=== PATIENT | male | born 1955 | race Caucasian/White ===

== ENCOUNTER → 2020-09-28 | Outpatient (CLI) | payer OTHER ==
--- NOTE | 2020-09-30 10:18 | P.ARTDOP ---
Arterial Doppler LOWER EXTREMITY ARTERIAL DOPPLER: DATE OF SERVICE: 09/28/2020 Reason for study: Calf claudication. Doppler waveforms: Multiphasic bilaterally throughout with excellent digital waveforms. Pulse volume recording: []. Pressure gradients: None of significance. Ankle-brachial indices: Greater than 1 bilaterally. Toe brachial indices: 0.66 on the right, 0.66 on the left Impression: Normal study.
== END | disposition home or self-care (01) ==
LOC: RADUSWWP 14:05
DX: M79.606 Pain in leg, unspecified (principal)
CPT/HCPCS: 93922

== ENCOUNTER 2020-12-18 15:26 | Emergency (ER) | payer OTHER ==
[2020-12-18 15:36] VITALS: RESP 18; TEMP 97.3
--- NOTE | 2020-12-18 15:42 | ED ---
General Adult HPI - General Chief complaint: Neuro Symptoms/Deficit Stated complaint: blurred vision Time Seen by Provider: 12/18/20 15:41 Source: patient, family Mode of arrival: ambulatory Limitations: no limitations - History of Present Illness Initial comments: Patient presents to the ED with his daughter for evaluation. Patient states that he was doing some work outdoors on a fence about an hour ago when he became lightheaded and "shaky". Patient states that his vision then became blurry, so he sat down. Patient states that he then called his daughter who arrived about 20 minutes later. Patient's daughter states that the patient looked pale in appearance when she arrived, but she states that he looks much better now. Patient states that his symptoms have completely resolved at this time. Patient states that he has not had anything to eat today, and he states that he did have one "mixed" alcoholic beverage today. Patient denies having any symptoms or complaints currently. Patient denies fall/trauma/injury, fever or chills, head ache, focal numbness/weakness/neuro deficit, speech difficulty, chest pain or pressure, dyspnea, palpitations, syncope, abdominal pain, nausea/vomiting/diarrhea, bloody or melanotic stool, dysuria or urinary symptoms, or any other symptoms or complaints. Patient denies any recent change in his medications. - Related Data Home Medications Medication Instructions Recorded Confirmed Unable To Assess [Unable to Assess] 11/24/15 11/24/15 Allergies Allergy/AdvReac Type Severity Reaction Status Date / Time No Known Allergies Allergy Verified 12/18/20 15:36 Review of Systems ROS Statement: Those systems with pertinent positive or pertinent negative responses have been documented in the HPI. ROS Other: All systems not noted in ROS Statement are negative. Past Medical History Past Medical History: Hypertension Additional Past Medical History / Comment(s): prostate issues History of Any Multi-Drug Resistant Organisms: None Reported Past Surgical History: No Surgical Hx Reported Past Psychological History: No Psychological Hx Reported Smoking Status: Current some day smoker Past Alcohol Use History: Daily, Heavy Past Drug Use History: None Reported General Exam Limitations: no limitations General appearance: alert, in no apparent distress Head exam: Present: atraumatic, normocephalic Eye exam: Present: normal appearance, PERRL, EOMI ENT exam: Present: mucous membranes moist Neck exam: Present: other (Trachea is in midline) Respiratory exam: Present: normal lung sounds bilaterally. Absent: respiratory distress, wheezes, rales, rhonchi, stridor Cardiovascular Exam: Present: regular rate, normal rhythm, normal heart sounds, other (Normal radial pulses bilaterally) GI/Abdominal exam: Present: soft. Absent: distended, tenderness, guarding Extremities exam: Present: full ROM. Absent: pedal edema Neurological exam: Present: alert, oriented X3, CN II-XII intact. Absent: motor sensory deficit Psychiatric exam: Present: normal affect, normal mood Skin exam: Present: warm, dry, intact, normal color Course Vital Signs 12/18/20 15:32 Temperature 97.3 F L Pulse Rate 77 Respiratory 18 Rate Blood Pressure 105/68 O2 Sat by Pulse 100 Oximetry - Reevaluation(s) Reevaluation #1: 12/18/20 18:24 Patient continues to deny having any symptoms while in the ED. Patient remains alert and breathing comfortably with stable vital signs and a normal room air oxygen saturation. Patient and daughter are aware the patient's test results, and they both feel comfortable with the patient going home at this time. Patient was encouraged to drink plenty of water/fluids and to avoid alcoholic beverages. Patient was counseled about lightheadedness, and he was clearly explained return and follow-up instructions. Patient was instructed to follow up closely with his primary care provider. Patient feels comfortable with this plan. EKG Findings - EKG Comments: EKG Findings:: Normal sinus rhythm, ventricular rate of 79 bpm, no ectopy, normal [place] and QRS intervals, normal QT interval, normal axis, no ST or T-wave abnormality Medical Decision Making - Medical Decision Making Patient's EKG, labs and imaging studies are all fairly unremarkable. I suspect that the patient's symptoms likely represent a near syncopal episode and not a neurological event. I do not suspect an emergent medical condition at this time. Patient's vital signs have been stable and reassuring and the ED. Will discharge patient home with his daughter at this time. Patient was clearly given return and follow-up instructions. Patient was instructed to have a low threshold for return to the ED should his symptoms return/worsen or should he develop any new concerning symptoms. Patient feels comfortable with this plan. - Lab Data Result diagrams: 12/18/20 16:14 12/18/20 16:14 Lab Results 12/18/20 12/18/20 12/18/20 Range/Units 15:51 16:14 16:14 WBC 9.9 (3.8-10.6) k/uL RBC 4.62 (4.30-5.90) m/uL Hgb 15.6 (13.0-17.5) gm/dL Hct 44.7 (39.0-53.0) % MCV 96.8 (80.0-100.0) fL MCH 33.8 (25.0-35.0) pg MCHC 34.9 (31.0-37.0) g/dL RDW 13.8 (11.5-15.5) % Plt Count 184 (150-450) k/uL MPV 6.5 Neutrophils % 77 % Lymphocytes % 14 % Monocytes % 6 % Eosinophils % 2 % Basophils % 0 % Neutrophils # 7.6 (1.3-7.7) k/uL Lymphocytes # 1.4 (1.0-4.8) k/uL Monocytes # 0.6 (0-1.0) k/uL Eosinophils # 0.2 (0-0.7) k/uL Basophils # 0.0 (0-0.2) k/uL PT 10.3 (9.0-12.0) sec INR 1.0 (<1.2) APTT 22.3 (22.0-30.0) sec Sodium (137-145) mmol/L Potassium (3.5-5.1) mmol/L Chloride (98-107) mmol/L Carbon Dioxide (22-30) mmol/L Anion Gap mmol/L BUN (9-20) mg/dL Creatinine (0.66-1.25) mg/dL Est GFR (CKD-EPI)AfAm (>60 ml/min/1.73 sqM) Est GFR (CKD-EPI)NonAf (>60 ml/min/1.73 sqM) Glucose (74-99) mg/dL POC Glucose (mg/dL) 131 H (75-99) mg/dL POC Glu Small Parts Shaper Operator ID Svacha, II, Allen Calcium (8.4-10.2) mg/dL Total Bilirubin (0.2-1.3) mg/dL AST (17-59) U/L ALT (4-49) U/L Alkaline Phosphatase (38-126) U/L Troponin I (0.000-0.034) ng/mL Total Protein (6.3-8.2) g/dL Albumin (3.5-5.0) g/dL Urine Color Urine Appearance (Clear) Urine pH (5.0-8.0) Ur Specific Korbel (1.001-1.035) Urine Protein (Negative) Urine Glucose (UA) (Negative) Urine Ketones (Negative) Urine Blood (Negative) Urine Nitrite (Negative) Urine Bilirubin (Negative) Urine Urobilinogen (<2.0) mg/dL Ur Leukocyte Esterase (Negative) Serum Alcohol mg/dL 12/18/20 12/18/20 12/18/20 Range/Units 16:14 16:14 16:14 WBC (3.8-10.6) k/uL RBC (4.30-5.90) m/uL Hgb (13.0-17.5) gm/dL Hct (39.0-53.0) % MCV (80.0-100.0) fL MCH (25.0-35.0) pg MCHC (31.0-37.0) g/dL RDW (11.5-15.5) % Plt Count (150-450) k/uL MPV Neutrophils % % Lymphocytes % % Monocytes % % Eosinophils % % Basophils % % Neutrophils # (1.3-7.7) k/uL Lymphocytes # (1.0-4.8) k/uL Monocytes # (0-1.0) k/uL Eosinophils # (0-0.7) k/uL Basophils # (0-0.2) k/uL PT (9.0-12.0) sec INR (<1.2) APTT (22.0-30.0) sec Sodium 139 (137-145) mmol/L Potassium 4.4 (3.5-5.1) mmol/L Chloride 102 (98-107) mmol/L Carbon Dioxide 23 (22-30) mmol/L Anion Gap 14 mmol/L BUN 9 (9-20) mg/dL Creatinine 1.20 (0.66-1.25) mg/dL Est GFR (CKD-EPI)AfAm 73 (>60 ml/min/1.73 sqM) Est GFR (CKD-EPI)NonAf 63 (>60 ml/min/1.73 sqM) Glucose 121 H (74-99) mg/dL POC Glucose (mg/dL) (75-99) mg/dL POC Glu Small Parts Shaper Operator ID Calcium 9.7 (8.4-10.2) mg/dL Total Bilirubin 1.2 (0.2-1.3) mg/dL AST 48 (17-59) U/L ALT 36 (4-49) U/L Alkaline Phosphatase 84 (38-126) U/L Troponin I <0.012 (0.000-0.034) ng/mL Total Protein 7.9 (6.3-8.2) g/dL Albumin 4.8 (3.5-5.0) g/dL Urine Color Yellow Urine Appearance Clear (Clear) Urine pH 5.5 (5.0-8.0) Ur Specific Korbel 1.007 (1.001-1.035) Urine Protein Trace H (Negative) Urine Glucose (UA) Negative (Negative) Urine Ketones Negative (Negative) Urine Blood Negative (Negative) Urine Nitrite Negative (Negative) Urine Bilirubin Negative (Negative) Urine Urobilinogen <2.0 (<2.0) mg/dL Ur Leukocyte Esterase Negative (Negative) Serum Alcohol <10 mg/dL - Radiology Data Radiology results: report reviewed (Chest x-ray: Normal chest, no change; noncontrast head CT: Negative CT scan of the brain) Disposition Clinical Impression: Lightheadedness Disposition: HOME SELF-CARE Condition: Stable Instructions (If sedation given, give patient instructions): Lightheadedness (ED) Additional Instructions: Return to the ER immediately should you develop any significant pain, a fever, numbness or weakness, chest pain, shortness of breath, feeling faint or fainting, or new or worsening symptoms. Follow up closely with your primary care provider. Is patient prescribed a controlled substance at d/c from ED?: No Referrals: [facility],Clinic [Primary Care Provider] - 1-2 days Time of Disposition: 18:27
[2020-12-18] MEDS ORDERED: SODIUM CHLORIDE 0.9% 1,000 ML IV STA (15:51)
[2020-12-18 15:53] LABS: Glucose,Whole Blood 131 mg/dL (75-99)
[2020-12-18 16:25] LABS: Basophils % (A) 0 %; Eosinophils # (A) 0.2 k/uL (0-0.7); Eosinophils % (A) 2 %; HCT 44.7 % (39.0-53.0); HGB 15.6 gm/dL (13.0-17.5); Lymphocytes # (A) 1.4 k/uL (1.0-4.8); Lymphocytes % (A) 14 %; MCH 33.8 pg (25.0-35.0); MCHC 34.9 g/dL (31.0-37.0); MCV 96.8 fL (80.0-100.0); Mean Platelet Volume 6.5; Monocytes # (A) 0.6 k/uL (0-1.0); Monocytes % (A) 6 %; Neutrophils # (A) 7.6 k/uL (1.3-7.7); Neutrophils % (A) 77 %; Platelet Count 184 k/uL (150-450); RBC 4.62 m/uL (4.30-5.90); RDW 13.8 % (11.5-15.5); WBC 9.9 k/uL (3.8-10.6)
[2020-12-18 16:37] LABS: ALT 36 U/L (4-49); AST 48 U/L (17-59); African American GFR (CKD) 73 (>60 ml/min/1.73 sqM); Albumin 4.8 g/dL (3.5-5.0); Alcohol <10 mg/dL; Alkaline Phosphatase 84 U/L (38-126); Anion Gap 14 mmol/L; Blood Urea Nitrogen 9 mg/dL (9-20); Calcium 9.7 mg/dL (8.4-10.2); Carbon Dioxide 23 mmol/L (22-30); Chloride 102 mmol/L (98-107); Glucose 121 mg/dL (74-99); Non-African American GFR(CKD) 63 (>60 ml/min/1.73 sqM); Potassium 4.4 mmol/L (3.5-5.1); Sodium 139 mmol/L (137-145); Total Bilirubin 1.2 mg/dL (0.2-1.3); Total Protein 7.9 g/dL (6.3-8.2)
[2020-12-18 16:38] LABS: Partial Thromboplastin Time 22.3 sec (22.0-30.0); Prothrombin Time 10.3 sec (9.0-12.0)
--- NOTE | 2020-12-18 16:42 | XR ---
EXAMINATION TYPE: XR chest 2V DATE OF EXAM: 12/18/2020 COMPARISON: 11/24/2015 HISTORY: Lightheaded. TECHNIQUE: FINDINGS: Heart and mediastinum are normal. Lungs are clear. Diaphragm is normal. There are chest dylan ds. Bony thorax is intact. IMPRESSION: Normal chest. No change.
--- NOTE | 2020-12-18 17:08 | CT ---
EXAMINATION TYPE: CT brain wo con DATE OF EXAM: 12/18/2020 COMPARISON: 11/24/2015 HISTORY: Dizziness CT DLP: 1099.4 mGycm Automated exposure control for dose reduction was used. Ventricles have normal size. There is no mass effect nor midline shift. There is no sign of intracran ial hemorrhage. There is mild cerebral atrophy. The ring is intact. Skull base is intact. IMPRESSION: Negative CT scan of the brain. Debris in the right external auditory canal. Brain unchanged compared to old exam.
[2020-12-18 18:13] LABS: Appearance,Urine Clear (Clear); Bilirubin,Urine Negative (Negative); Blood,Urine Negative (Negative); Color,Urine Yellow; Glucose,Urine (UA) Negative (Negative); Ketones,Urine Negative (Negative); Leukocyte Esterase,Urine Negative (Negative); Nitrite,Urine Negative (Negative); PH, Urine 5.5 (5.0-8.0); Protein,Urine Trace (Negative); Specific Gravity,Urine 1.007 (1.001-1.035); Urobilinogen,Urine <2.0 mg/dL (<2.0)
[2020-12-18 18:45] VITALS: BP 107/70; PULSE 84
== END 2020-12-18 18:45 | disposition home or self-care (01) ==
LOC: EC 15:26
DX: R42 Dizziness and giddiness (principal); I10 Essential (primary) hypertension; F17.200 Nicotine dependence, unspecified, uncomplicated
CPT/HCPCS: 36415; 70450; 71046; 80053; 80320; 81003; 84484; 85025; 85610; 85730; 93005; 96376; 99284

== ENCOUNTER 2023-07-04 08:14 | Emergency (ER) | payer OTHER ==
[2023-07-04 08:36] VITALS: RESP 18; TEMP 98
--- NOTE | 2023-07-04 09:14 | US ---
EXAMINATION TYPE: US venous doppler duplex LE RT DATE OF EXAM: 07/04/2023 9:03 AM COMPARISON: NONE CLINICAL INDICATION: Male, 67 years old with history of pain; No hx of DVT. Patient does not take blo od thinners. Pain right leg x 1 month. SIDE PERFORMED: Right TECHNIQUE: The lower extremity deep venous system is examined utilizing real time linear array sonog dimple with graded compression, doppler sonography and color-flow sonography. VESSELS IMAGED: Common Femoral Vein Deep Femoral Vein Greater Saphenous Vein * Femoral Vein Popliteal Vein Small Saphenous Vein * Proximal Calf Veins (* superficial vessels) There is color flow with compressibility identified. Right Leg: No evidence of DVT. IMPRESSION: No deep venous thrombosis of the right lower extremity.
--- NOTE | 2023-07-04 09:15 | ED ---
Lower Extremity Injury HPI - General Chief Complaint: Extremity Injury, Lower Stated Complaint: poss DVT Time Seen by Provider: 07/04/23 08:16 Source: patient, RN notes reviewed Mode of arrival: ambulatory Limitations: no limitations - History of Present Illness Initial Comments: 67-year-old male presents emergency department to complaint of right calf Pain. Patient states he's been having symptoms for last 1 month he states started after plane flight. Patient states that it's usually after he gets walking for a period time he states that it starts aching throughout the rest the day. Patient denies any significant swelling redness denies any chest pain or shortness breath patient has no history DVT. - Related Data Home Medications Medication Instructions Recorded Confirmed Unable To Assess [Unable to Assess] 11/24/15 11/24/15 Allergies Allergy/AdvReac Type Severity Reaction Status Date / Time No Known Allergies Allergy Verified 07/04/23 08:25 Review of Systems ROS Statement: Those systems with pertinent positive or pertinent negative responses have been documented in the HPI. ROS Other: All systems not noted in ROS Statement are negative. Past Medical History Past Medical History: Hypertension Additional Past Medical History / Comment(s): prostate issues History of Any Multi-Drug Resistant Organisms: None Reported Past Surgical History: No Surgical Hx Reported, Orthopedic Surgery Additional Past Surgical History / Comment(s): right arm Past Psychological History: No Psychological Hx Reported Smoking Status: Current some day smoker Past Alcohol Use History: Daily, Heavy Past Drug Use History: None Reported General Exam Limitations: no limitations General appearance: alert, in no apparent distress Head exam: Present: atraumatic, normocephalic, normal inspection Eye exam: Present: normal appearance, PERRL, EOMI. Absent: scleral icterus, conjunctival injection, periorbital swelling ENT exam: Present: normal exam, normal oropharynx, mucous membranes moist Neck exam: Present: normal inspection, full ROM. Absent: tenderness, meningismus, lymphadenopathy Respiratory exam: Present: normal lung sounds bilaterally. Absent: respiratory distress, wheezes, rales, rhonchi, stridor Cardiovascular Exam: Present: regular rate, normal rhythm, normal heart sounds. Absent: systolic murmur, diastolic murmur, rubs, gallop, clicks Extremities exam: Present: other (Right calf there is mild tenderness, pedal pulses are equal bilaterally equal colonic warmth) Course Vital Signs 07/04/23 08:21 Temperature 98 F Pulse Rate 79 Respiratory 18 Rate Blood Pressure 148/87 O2 Sat by Pulse 98 Oximetry Medical Decision Making - Medical Decision Making Was pt. sent in by a medical professional or institution (CHUYITA Alcantara, SCANNER SUPERVISOR, urgent care, hospital, or shelter...) When possible be specific @ -No Did you speak to anyone other than the patient for history (EMS, parent, family, police, friend...)? What history was obtained from this source @ -No Did you review nursing and triage notes (agree or disagree)? Why? @ -I reviewed and agree with nursing and triage notes Were old charts reviewed (outside hosp., previous admission, EMS record, old EKG, old radiological studies, urgent care reports/EKG's, shelter records)? Report findings @ -No old charts were reviewed Differential Diagnosis (chest pain, altered mental status, abdominal pain women, abdominal pain men, vaginal bleeding, weakness, fever, dyspnea, syncope, headach e, dizziness, GI bleed, back pain, seizure, CVA, palpatations, mental health, musculoskeletal)? @ -DVT, claudication pain, Concepcion's cyst, muscular strain EKG interpreted by me (3pts min.). @ -None X-rays interpreted by me (1pt min.). @ -None done CT interpreted by me (1pt min.). @ -None done U/S interpreted by me (1pt. min.). @ -[Ultrasound was negative for acute DVT. What testing was considered but not performed or refused? (CT, X-rays, U/S, labs)? Why? @ -None What meds were considered but not given or refused? Why? @ -None Did you discuss the management of the patient with other professionals (professionals i.e. CHUYITA Alcantara, SCANNER SUPERVISOR, lab, RT, psych nurse, social welfare clerk, design intern, teacher, chief green officer, medical case worker)? Give summary @ -No Was smoking cessation discussed for >3mins.? @ -No Was critical care preformed (if so, how long)? @ -No Were there social determinants of health that impacted care today? How? (Homelessness, low income, unemployed, alcoholism, drug addiction, transportation, low edu. Level, literacy, decrease access to med. care, residential, rehab)? @ -No Was there de-escalation of care discussed even if they declined (Discuss DNR or withdrawal of care, Hospice)? DNR status @ -No What co-morbidities impacted this encounter? (DM, HTN, Smoking, COPD, CAD, Cancer, CVA, ARF, Chemo, Hep., AIDS, mental health diagnosis, sleep apnea, morbid obesity)? @ -None Was patient admitted / discharged? Hospital course, mention meds given and route, prescriptions, significant lab abnormalities, going to OR and other pertinent info. @ -Discharge patient has negative CT patient symptoms may be related to claudication pain, muscular injury. Patient will be discharged with close follow-up return parameters were discussed. Undiagnosed new problem with uncertain prognosis? @ -No Drug Therapy requiring intensive monitoring for toxicity (Heparin, Nitro, Insulin, Cardizem)? @ -No Were any procedures done? @ -No Diagnosis/symptom? @ -Leg pain Acute, or Chronic, or Acute on Chronic? @ -Acute Uncomplicated (without systemic symptoms) or Complicated (systemic symptoms)? @ -Uncomplicated Side effects of treatment? @ -No Exacerbation, Progression, or Severe Exacerbation? @ -No] Poses a threat to life or bodily function? How? (Chest pain, USA, MS, pneumonia, PE, COPD, DKA, ARF, appy, cholecystitis, CVA, Diverticulitis, Homicidal, Suicidal, threat to staff... and all critical care pts) @ -[No] Disposition Clinical Impression: Right leg pain Disposition: HOME SELF-CARE Condition: Stable Instructions (If sedation given, give patient instructions): Leg Pain (ED) Additional Instructions: Please return to the Emergency Department if symptoms worsen or any other concerns. Is patient prescribed a controlled substance at d/c from ED?: No Referrals: [facility],Clinic [Primary Care Provider] - 1-2 days Shannan Johnson DO [STAFF PHYSICIAN] - 1-2 days Ash Cabrera MD [STAFF PHYSICIAN] - 1-2 days Time of Disposition: 09:35
[2023-07-04 09:58] VITALS: BP 146/84; PULSE 78
== END 2023-07-04 09:50 | disposition home or self-care (01) ==
LOC: EC 08:14
DX: M79.604 Pain in right leg (principal); I10 Essential (primary) hypertension; F17.200 Nicotine dependence, unspecified, uncomplicated
CPT/HCPCS: 99283

== ENCOUNTER → 2024-10-27 | Outpatient (CLI) | payer OTHER ==
--- NOTE | 2024-10-27 10:47 | CT ---
EXAMINATION TYPE: CT chest wo con DATE OF EXAM: 10/27/2024 COMPARISON: 12/18/2020 HISTORY: 69-year-old male R05.8, cough TECHNIQUE: Contiguous axial scanning of the chest without IV contrast. Coronal/sagittal reconstructio ns performed. CT DLP: 795.3mGycm. Automatic exposure control utilized for a dose reduction. FINDINGS: The heart is normal size with trace anterior basilar pericardial fluid. LAD coronary artery calcifica tions are present. Aorta normal caliber with conventional arch vessel branching anatomy. No thoracic lymphadenopathy by CT size criteria. A 4 mm pulmonary nodule lateral right upper lobe, axial image 9. Patchy groundglass change lateral right midlung, lateral right middle lobe, and posterior right lower lobe. Lesser degree of subpleural reticulation and groundglass basilar left lower lobe. No shira consolidation or pleural effusion. Visualized upper abdomen shows some mid abdominal Central irving mesentery which is nonspecific. No as sociated adenopathy is seen. Cortical hypodensity measuring 1.4 cm posterior left kidney probably ian al cysts. Spleen borderline enlarged at 13.6 cm. Bones: Anterior endplate spondylosis mid to lower thoracic spine. IMPRESSION: 1. Patchy groundglass lateral right midlung, lateral right middle lobe, and posterior right lower lob e. Lesser degree of similar changes at the basilar left lower lobe. Some possible etiologies include interstitial pneumonitis such RESEARCH PHYSICIAN, atypical/COVID pneumonias, and hypersensitivity pneumonitis. Consi sameer 3-6 month follow-up CT to reassess. Pulmonary medicine referral if symptoms warrant. 2. A 4 mm right upper lobe pulmonary nodule can be reassessed at a 12 month follow-up. 3. Nonspecific mid abdominal irving mesentery bowel without any associated lymphadenopathy. Consider 6 month follow-up CT abdomen and pelvis to reassess. Borderline sized spleen at 13.6 cm. [facility], , 10/27/2024 10:44 AM
== END | disposition home or self-care (01) ==
LOC: RADCTMAIN 08:56
PROVIDERS: ATTEND Family Medicine
DX: R05.8 Other specified cough (principal); R91.8 Other nonspecific abnormal finding of lung field
CPT/HCPCS: 71250

== ENCOUNTER 2024-12-25 10:09 | Day surgery (SDC) | payer OTHER ==
[~2024-12-25 10:09] MED LIST: LACTATED RINGERS 1,000 ML IV SCH; LIDOCAINE 1% (10MG/ML) FOR IV START INTRADERMA PRN; ONDANSETRON 4 MG/2 ML VIAL IVP PRN
[2024-12-25] MEDS: IV FLUID CONTINUATION 1,000 ML IV ONE ×2 (10:36→12:11)
[2024-12-25] MEDS: LACTATED RINGERS 1,000 ML IV SCH (10:38)
[2024-12-25] MEDS ORDERED: MIDAZOLAM 2 MG/2 ML VIAL ONE (11:03)
[2024-12-25] MEDS ORDERED: ePHEDrine 50 MG/ML 1 ML VIAL ONE (11:03)
[2024-12-25] MEDS ORDERED: fentaNYL (PF) 50 MCG/ML 2 ML AMP ONE (11:03)
[2024-12-25] MEDS ORDERED: SUCCINYLCHOLINE CHLORIDE 200 MG/10 ML VIAL IV ONE (11:03)
[2024-12-25] MEDS ORDERED: PHENYLEPHRINE 10 MG/ML VIAL ONE (11:03)
[2024-12-25] MEDS ORDERED: ROCURONIUM 10 MG/ML (5 ML VIAL) IV ONE (11:03)
[2024-12-25] MEDS ORDERED: DEXAMETHASONE SOD PHOSPHATE 10 MG/ML 1 ML VIAL ONE (11:03)
[2024-12-25] MEDS ORDERED: ONDANSETRON 4 MG/2 ML VIAL ONE (11:03)
[2024-12-25] MEDS ORDERED: PROPOFOL 10 MG/ML 20 ML VIAL IV ONE (11:03)
[2024-12-25] MEDS ORDERED: WATER FOR INJECTION, STERILE 10 ML VIAL IV ONE (11:03)
--- NOTE | 2024-12-25 12:03 | PCN ---
PROCEDURE NOTE PROCEDURES: Bronchoscopy, airway examination, therapeutic lavage, BAL right middle lobe, brushes to the right middle lobe and right lower lobe, and endobronchial and transbronchial biopsies to the right lower lobe. PREOPERATIVE DIAGNOSIS: Diffuse interstitial lung disease with ground-glass opacities. POSTOPERATIVE DIAGNOSIS: Diffuse interstitial lung disease with ground-glass opacities. The patient's procedure was done in [facility] room #1. There was informed consent and universal timeout. The patient's procedure was done with general endotracheal anesthesia with Dr. Parisi and Yas Boyer CRNA. ASPHALT PAVING FOREMAN: Dr. Jeffrey. FIRST WILLOW ANALYST: Cinda Rodas. DESCRIPTION OF PROCEDURE: After the patient was adequately sedated and under the effects of anesthesia, with an orally placed endotracheal tube, the bronchoscope was inserted through the bronchoscope adapter attached to the endotracheal tube. The airways were examined initially, including the right upper lobe and its 3 segments, right middle lobe and its 2 segments, right lower lobe and its 5 segments, left upper lobe proper and its 2 segments, lingula and its 2 segments, and left lower lobe and its 4 segments. The airway exam itself was normal. Next, under fluoroscopic guidance, we did brushes to the right middle lobe and right lower lobe. After that, with direct visualization and fluoroscopic guidance, we did multiple transbronchial and endobronchial biopsies to the segment of the right lower lobe. Afterwards, we did a formal BAL to the right middle lobe. The patient tolerated the procedure well. There was minimal bleeding. We ensured hemostasis before the bronchoscope was withdrawn. Anesthesia will eventually recover the patient and extubate the patient. The patient tolerated the procedure well and was stable throughout the entire procedure. MMODL / IJN: [id number] /
[2024-12-25 12:10] VITALS: TEMP 97.1
--- NOTE | 2024-12-25 12:10 | FL ---
EXAMINATION TYPE: FL bronchoscopy Intraoperative/procedural fluoroscopic services were provided. CLINICAL INDICATION:Male, 69 years old with history of COPD; , [facility] FINDINGS: Couple fluoroscopic images for bronchoscopy. No radiographic evidence for complication. Total fluoroscopy time is 27 seconds. DAP: 3.7499 Gycm2 Please see the operative/procedural note for further details. [facility], , 12/25/2024 12:08 PM
[2024-12-25 12:19] VITALS: RESP 16
--- NOTE | 2024-12-25 12:36 | XR ---
EXAMINATION TYPE: XR chest 1V portable DATE OF EXAM: 12/25/2024 12:23 PM COMPARISON: Chest radiographs from 12/18/2020, CT chest 10/27/2024, fluoroscopic images 12/25/2024. TECHNIQUE: XR chest 1V portable Portable AP radiograph of the chest. CLINICAL INDICATION:Male, 69 years old with history of POST BRONCH; FINDINGS: Patient is rotated which limits evaluation. Lungs/Pleura: Low lung volumes with right basilar airspace opacities. No pneumothorax or sizable pleu ral effusion. Pulmonary vascularity: Unremarkable. Heart/mediastinum: Cardiomediastinal silhouette is enlarged and stable. Musculoskeletal: No acute osseous pathology. IMPRESSION: 1. Low lung volumes with right basilar airspace opacities which may represent infiltrates versus ate lectasis. No pneumothorax. 2. Cardiomegaly. [facility], , 12/25/2024 12:34 PM
[2024-12-25 13:06] VITALS: BP 121/77; PULSE 66
[2024-12-26 04:04] LABS: Appearance,BF Bloody (Clear); RBC, Body Fluid 56250 /UL (0-2000)
[2024-12-29 12:03] LABS: Nucleated Cells, Body Fluid 17 /UL
== END 2024-12-25 13:20 | disposition home or self-care (01) ==
LOC: ORWHC2ENDO 10:09
PROVIDERS: ATTEND Internal Medicine Critical Care Medicine
DX: J44.9 Chronic obstructive pulmonary disease, unspecified (principal); I51.7 Cardiomegaly; I10 Essential (primary) hypertension; F17.200 Nicotine dependence, unspecified, uncomplicated; F10.20 Alcohol dependence, uncomplicated; E66.01 Morbid (severe) obesity due to excess calories; M10.9 Gout, unspecified; B96.81 Helicobacter pylori [H. pylori] as the cause of diseases classified elsewhere; Z68.39 Body mass index [BMI] 39.0-39.9, adult; Z79.51 Long term (current) use of inhaled steroids; Z79.899 Other long term (current) drug therapy
CPT/HCPCS: 88104; 88108; 88305; 89050; 87070; 87205; 87116; 87102; 87206; 71045; 31628; 31623; 31624; J2250; J0330; J1100; J2405; J3010; J2704; J2371; 87496; 87498; 87502; 87529; 87634; 87635; 87798